=== PATIENT | male | born 1955 | race Caucasian/White ===

== ENCOUNTER → 2021-03-20 | Outpatient (CLI) | payer BC ==
[~2021-03-20] MED LIST: ALLO300T2 PO; ALLP100T PO; AMLO5TAB2 PO; HCTZ PO; HYDR25TA4 PO; LOSA50TA6 PO; POTA10TA17 PO; [UNRECOGNIZED DRUG - OTHER] PO
== END ==
LOC: LABNPT 06:10
PROVIDERS: ATTEND Internal Medicine
DX: U07.1 COVID-19 (principal)
CPT/HCPCS: 87635

== ENCOUNTER 2022-10-02 08:45 | Outpatient (CLI) | payer BC, OTHER ==
[~2022-10-02] VITALS: Ht 188 cm; Wt 117.9 kg
== END 2022-10-02 15:38 ==
LOC: PREOP 08:45
PROVIDERS: ATTEND Internal Medicine
DX: Z01.818 Encounter for other preprocedural examination (principal)

== ENCOUNTER 2022-10-09 08:32 | Day surgery (SDC) | payer BC, OTHER ==
--- NOTE | 2022-10-03 05:42 | HISTORY AND PHYSICAL ---
DATE OF SERVICE: 10/09/2022 PANENDOSCOPY SUMMARY HISTORY OF PRESENT ILLNESS: The patient is a 67-year-old white male referred by Dr. Gallagher for panendoscopy due to history of occult positive blood in the stool with iron deficiency anemia. The patient does not report melena. Occasional small volume bright red blood per rectum. He has attributed to hemorrhoids without pain. He reports that he has lost about 7 pounds of weight over the past several months and has noted a little bit of fatigue, but voices no other symptoms. He had been taking ibuprofen on a regular basis for reported sciatic type pain. He reports no past history of known peptic ulcer disease. Denies dysphagia, odynophagia, or reflux. He had one other colonoscopy performed by Dr. Sierra well over 10 years ago. There is no report in the electronic medical record, which goes back to 2007. He states it was done at [facility]. PAST SURGICAL HISTORY: He reports no past surgeries. FAMILY HISTORY: He is not aware of any family history for GI tract malignancies or peptic ulcer disease. SOCIAL HISTORY: He is employed, no significant alcohol intake. Smoking history is pertinent for 1 pack per day, [id number] history. PAST MEDICAL HISTORY: Significant for reported benign prostatic hypertrophy, hypertension and intermittent gout. He also has history of nephrolithiasis. MEDICATIONS: Urocit-K 10 mEq daily, allopurinol 300 mg daily, hydrochlorothiazide 25 mg daily, losartan [ ] daily, amlodipine 5 mg daily, vitamin D 1000 units daily, multiple vitamin daily. REVIEW OF SYSTEMS: CONSTITUTIONAL: Pertinent for a 7-pound weight loss over the past month or two. Denies night sweats, chills or fever. GASTROINTESTINAL: As noted in the HPI. PULMONARY: Denies cough, wheezing or shortness of breath. CARDIOVASCULAR: Denies chest pain, orthopnea, PND, or pedal edema. PHYSICAL EXAMINATION: GENERAL: Reveals white male who did not appear to be in acute distress. He exhibits mild conjunctival pallor without scleral icterus. CHEST: Clear to auscultation. CARDIOVASCULAR: Reveals a regular rate and rhythm without murmur, S3, or S4. VITAL SIGNS: Heart rate 72 and regular, blood pressure 130/82, weight 262 pounds. ABDOMEN: Soft, supple without mass, organomegaly, or tenderness. EXTREMITIES: No cyanosis, clubbing or edema. ASSESSMENT: For further evaluation of iron deficiency anemia and occult positive blood in the stool with weight loss, the patient is being set up for panendoscopy next Wednesday and the patient states that he wishes to have the procedure done at [facility] and for this reason, he is being set up there on October 09. Prep instructions were given, questions were answered and the patient was advised to continue to abstain from ibuprofen and avoid aspirin, using Tylenol as needed for discomfort. I thank you for the referral of this pleasant gentleman. Job ID: [id number] DocumentID: [id number] Dictated Date: 10/01/2022 16:36:30 Coding Compliance Specialist Date: 10/01/2022 17:09:00 Dictated By: THELMA HOWARD MD
[~2022-10-09] VITALS: Ht 188 cm; Wt 117.9 kg
[2022-10-09] MEDS ORDERED: LACTATED RINGERS 1,000 ML IV STA (08:34)
--- NOTE | 2022-10-09 08:39 | Pre-Op Note & Conscious Sedat ---
Pre-Operative Progress Note Date H&P Reviewed: Oct 09, 2022 Time H&P Reviewed: 08:38 History & Physical: H&P Reviewed, Patient Examed, No changes noted Pre-Op Diagnosis: occcult positive blood and Fe deficiency anemia Moderate Sedation PreProcedure ASA Score 2 Airway Lungs Heart ASA score ASA 1: a normal healthy patient ASA 2: a patient with a mild systemic disease (mid diabetes, controlled hypertension, obesity ASA 3: a patient with a severe systemic disease that limits activity (angina, COPD, prior Myocardial infarction) ASA 4: a patient with an incapacitating disease that is a constant threat to life (CHF, renal failure) ASA 5: a moribund patient not expected to survive 24 hrs. (ruptured aneurysm) ASA 6: a declared brain- patient whose organs are being harvested. For emergent operations, add the letter E after the classification Mallampati Classification Grade 2 Sedation Plan Analgesia, Amnesia, Plan communicated to team members, Discussed options with patient/fam, Discussed risks with patient/fam The patient is an appropriate candidate to undergo the planned procedure, sedation, and anesthesia. The patient immediately re-assessed prior to indication. THELMA HOWARD MD Oct 09, 2022 08:39
[2022-10-09] MEDS ORDERED: HURRICAINE EXT TUBE (BENZOCAINE) XX PRN (08:45)
[2022-10-09 08:50] VITALS: BP 145/88
[2022-10-09] MEDS ORDERED: MIDAZOLAM 2 MG/2 ML (VERSED) VIAL ONE (09:03)
[2022-10-09] MEDS ORDERED: PROPOFOL INJECTION 50 ML IV ONE ×2 (09:03→09:22)
[2022-10-09 09:53] VITALS: BP 101/66
--- NOTE | 2022-10-09 09:56 | Progress Note-Post Operative ---
Post-Procedure Note Physician (s)/Produce Department Supervisor (s) Physician THELMA HOWARD MD Pre-Procedure Diagnosis Pre-Procedure Diagnosis: occcult positive blood and Fe deficiency anemia Post-Procedure Diagnosis Post-operative diagnosis: The patient was placed in the left lateral decubitus position. The endoscope inserted into the oral cavity and under direct visitation the esophagus is intubated. This was passed down the esophagus through the stomach into the second portion of the duodenum. A careful inspection was made as the endoscope withdrawn. Findings: the posterior pharynx epiglottis arytenoid aperture and true and false vocal folds were unremarkable to gross inspection. The proximal and midesophagus was unremarkable. The GE junction was approximately placed secondary to proximal 1 to 2 cm hiatal hernia erythema was noted Z-line without evidence for erosive esophagitis. No evidence to suggest Meléndez's change was noted. Biopsies obtained and submitted for histopathology. Along the greater curvature of the fundus was a fundal appearing polyp approximately 1 cm in size it was biopsied and ablated segment of histopathology. There was no subsequent blood loss. The cardia and fundus was otherwise unremarkable. There was an antral erosion with surrounding circular erythema which was biopsied after photograph was obtained and submitted for histopathology with some other areas of antral erythema small small in size without overt evidence for ulceration and no blood in the upper GI tract was noted. The pylorus the pyloric channel of the duodenal bulb and second portion of the duodenum were unremarkable with normal villous appearing architecture. 1 antral erosion was noted without overt evidence for ulceration. A fundal appearing polyp was removed via hot forceps in the midportion of the fundus. Patient had approximate 1 to 2 cm hiatal hernia presents with some GE junction erythema but no evidence for ulceration or Meléndez's change. No evidence for blood in the upper GI tract was noted. We then proceeded with colonoscopy. Prior to undergoing colonoscopy digital rectal evaluation was performed. Anal Sphincter tone was normal and the perianal reflexes intact. The prostate was mildly enlarged and a nodular on digital inspection. No other abnormalities noted to inspection of the anal canal or distal rectal vault. The colonoscope was then inserted into the rectum and under direct visualization advanced to the cecum. The cecum was identified by the indication of the ileocecal valve and the cecal strap. Photographic documentation was obtained. A careful inspection was made as the colonoscope withdrawn. Quality the prep was good. Findings there was no evidence for internal/external hemorrhoids in the rectum was unremarkable. Several small to medium size proximal sigmoid diverticulum were present with no other sigmoid abnormalities being appreciated. The descending colon and splenic flexure unremarkable. present in the proximal transverse colon were 2 sessile polyps within 3 cm of each other. The larger one measured approximately 1 byx 1.2 cm in size the smaller 8 mm in size. Both were ablated and submitted for histopathology with minimal blood loss. The splenic flexure Was unremarkable. Present in the mid ascending colon was a 3 mm sessile hyperplastic appearing polyp it was removed via cold forceps. the cecum was unremarkable. A/P 1. 3 polyps were removed today as noted above 1 via cold forceps in the mid ascending colon The 2 proximal transverse colon polyps removed via hot forceps. We will await histopathology Report before recommending future surveillance colonoscopy. 2. Mild diverticular disease confined to the sigmoid colon was present without evidence For diverticulitis. 3. Digital evaluation the prostate was compatible with mild BPH. 4. A definitive bleeding site to explain iron deficiency anemia and Occult positive blood was not identified On today's panendoscopy. THELMA HOWARD MD Oct 09, 2022 09:56
[2022-10-09 10:15] VITALS: BP 101/66
[2022-10-09 10:19] VITALS: BP 101/66
--- NOTE | 2022-10-09 12:53 | Anesthesia-General Post-Op ---
MAC Patient Condition Mental Status/LOC: Same as Preop Cardiovascular: Satisfactory Nausea/Vomiting: Absent Respiratory: Satisfactory Pain: Controlled Complications: Absent Post Op Complications Complications None Follow Up Care/Instructions Patient Instructions None needed. Anesthesiology Discharge Order Discharge Order Patient is doing well, no complaints, stable vital signs, no apparent adverse anesthesia problems. No complications reported per nursing. RAJAT COHEN CRNA Oct 09, 2022 12:53
== END 2022-10-09 11:07 | disposition home or self-care (01) ==
LOC: ENDO 08:32
PROVIDERS: ATTEND Internal Medicine
DX: K31.7 Polyp of stomach and duodenum (principal); D12.3 Benign neoplasm of transverse colon; D12.2 Benign neoplasm of ascending colon; K20.90 Esophagitis, unspecified without bleeding; K44.9 Diaphragmatic hernia without obstruction or gangrene; K57.30 Diverticulosis of large intestine without perforation or abscess without bleeding; D50.9 Iron deficiency anemia, unspecified; R19.5 Other fecal abnormalities; F17.210 Nicotine dependence, cigarettes, uncomplicated